=== PATIENT | male | born 1980 | race Caucasian/White ===

== ENCOUNTER 2021-05-03 18:37 | Emergency (ER) | payer OTHER, SELFPAY ==
--- NOTE | ~2021-05-03 | CT_ITS ---
EXAMINATION: CT cervical spine wo con DATE: 05/03/2021 19:33 INDICATION: Fall from skateboard. Struck posterior head, with loss of consciousness. Left-sided neck pain. TECHNIQUE: Computed tomography (CT) of the cervical spine was performed without intravenous contrast. Automated exposure control and iterative reconstruction technique were employed. Exam dose: 384.38 mGy-cm total exam DLP. COMPARISON: None FINDINGS: There is straightening of the thoracic spine which may be due to positioning or muscle spas m. C1 and C2 are normally aligned and the odontoid process is intact. No fracture or dislocation or lock ed facet or prevertebral soft tissue swelling. Cervical interspaces are preserved.. IMPRESSION: Straightening of cervical spine; no fracture or dislocation or locked facet Reviewed, dictated and finalized at [facility]. Reviewed, dictated and finalized at [facility]. IMPRESSION: Straightening of cervical spine; no fracture or dislocation or loc ked facet
--- NOTE | ~2021-05-03 | CT_ITS ---
EXAMINATION: CT brain wo con DATE: 05/03/2021 19:33 INDICATION: Head injury, loss of consciousness. TECHNIQUE: Computed tomography (CT) of the head was performed without intravenous contrast. The mA wa s adjusted according to patient size. Iterative reconstruction technique was employed. Exam dose: 68 1.00 mGy-cm total exam DLP. COMPARISON: None FINDINGS: No intracranial mass lesion or hemorrhage or cerebrovascular accident. No midline shift or mass effect. Normal ventricular size. No subdural or epidural hematoma. No orbital mass lesion. The mastoid air cells are normally developed and aerated. Included paranasal sinuses are normally dev eloped and aerated. No fracture or bone destruction of the cranial vault. Probable sebaceous cyst in the scalp in the high left frontal and high posterior left parietal areas, the latter with some calcifications. IMPRESSION: No significant intracranial abnormality Reviewed, dictated and finalized at [facility]. Reviewed, dictated and finalized at [facility].
--- NOTE | ~2021-05-03 | XR_ITS ---
XR lumbar spine 2-3V DATE: 05/03/2021 19:24 INDICATION: Fall one skateboard today. Low back pain. TECHNIQUE: AP, lateral, coned lateral lumbosacral views COMPARISON: None FINDINGS: Normal alignment of the lumbar spine. No fracture or bone destruction or spondylolisthesis. The included lower thoracic and lumbar pedicles are intact. Lumbar and lumbosacral interspaces are w ell preserved. The sacroiliac joints are intact. IMPRESSION: Negative Reviewed, dictated and finalized at [facility]. IMPRESSION: Negative
[2021-05-03 18:40] VITALS: BP 130/100; PULSE 86; RESP 20; O2SAT 97
[2021-05-03 19:06] VITALS: BP 128/78; PULSE 76; RESP 16; TEMP 37.1; O2SAT 97
--- NOTE | 2021-05-03 19:16 | ED.GENADULT ---
HPI - General Adult General Chief complaint: Head Injury Stated complaint: Head Injury Time Seen by Provider: 05/03/21 18:57 Source: patient, family and RN notes reviewed Mode of arrival: ambulatory Limitations: no limitations History of Present Illness HPI narrative: 40-year-old male presented to the emergency department after having a head injury while skateboarding. Patient states he lost balance fell backwards and striking his head. Patient suspects he did have loss of consciousness. Patient is also having neck and lower back pain. Related Data Home Medications Medication Instructions Recorded Confirmed No Home Medications 01/20/19 01/20/19 Allergies Allergy/AdvReac Type Severity Reaction Status Date / Time No Known Allergies Allergy Verified 01/20/19 10:24 Review of Systems Review of Systems: CONSTITUTIONAL: Denies fever, chills, or sweats. EYES: Denies visual changes, redness, or discharge. ENT: Denies rhinorrhea, congestion, sore throat, or otalgia. CARDIOVASCULAR: Denies chest pain, palpitations, or edema. RESPIRATORY: Denies cough or dyspnea. GASTROINTESTINAL: Denies abdominal pain, nausea, vomiting, or diarrhea. GENITOURINARY: Denies dysuria or hematuria. SKIN: Denies rash or itching. MUSCULOSKELETAL: head, neck and lumbar back pain NEUROLOGIC: headache PMFSH Past Medical History Medical History (Updated 05/06/21 @ 22:25 by Tucker Carrington MD) Klinefelters syndrome Social History Social History (Updated 01/20/19 @ 11:31 by Abigail Ramos, [facility]) Smoking status: Never smoker Alcohol intake: current Alcohol use details: social Substance use: never Gender identity (if verbalized by the patient): Male Exam Narrative: APPEARANCE: Well appearing, no pain, no distress, well-nourished. HEAD: normocephalic, mild contusion on posterior scalp, no laceration. EYES: PERRLA/EOMI, conjunctivae clear. NOSE: Normal no drainage EARS:TMS clear with good light reflex. THROAT: Pharynx clear, no exudate. NECK: Supple. No adenopathy, no masses. RESPIRATORY: Airway patent, respirations nonlabored. Clear to auscultation bilaterally, no rales, rhonchi, wheezing. CARDIOVASCULAR: Regular rate and rhythm without murmurs rubs or gallops. ABDOMINAL: Soft, nontender, nondistended, normal bowel sounds MUSCULOSKELETAL: Moves all extremities. Strength/ROM intact, No edema, No calf tenderness. NEURO: Alert. Cranial nerves II through XII intact. Good gait. Good coordination SKIN: Warm, dry. Normal Color Course Course Emergency Course: CT head neck and lumbar spine showed no acute fractures dislocations. Patient and family were updated on the results of the imaging. Patient was able to ambulate emergency department without issue. Patient was educated on concussion precautions and educated on the importance of close follow-up with his primary care physician. All questions concerns were addressed. Patient was well-appearing at time of discharge from the emerge department. Vital Signs Vital signs: Vital Signs Pulse Rate 86 05/03/21 18:40 Respiratory Rate 20 05/03/21 18:40 Blood Pressure 130/100 H 05/03/21 18:40 Pulse Oximetry 97 05/03/21 18:40 Temperature 97.8 F 05/03/21 20:04 Pulse Rate 68 05/03/21 21:08 Respiratory Rate 16 05/03/21 21:08 Blood Pressure 127/75 05/03/21 21:08 Pulse Oximetry 99 05/03/21 21:08 Medical Decision Making Vital Signs Vital Signs: Vital Signs Pulse Rate 86 05/03/21 18:40 Respiratory Rate 20 05/03/21 18:40 Blood Pressure 130/100 H 05/03/21 18:40 Pulse Oximetry 97 05/03/21 18:40 Temperature 97.8 F 05/03/21 20:04 Pulse Rate 68 05/03/21 21:08 Respiratory Rate 16 05/03/21 21:08 Blood Pressure 127/75 05/03/21 21:08 Pulse Oximetry 99 05/03/21 21:08 Discharge Plan Discharge Clinical Impression: Closed head injury, Low back pain Patient Disposition: Home, Self-Care Condition: Stable Instruction
[2021-05-03] MEDS: HYDROcodone/acetaminophen (*CRX) 5-325 MG TABLET 1 TAB PO (19:53)
[2021-05-03 20:04] VITALS: BP 129/91; PULSE 86; RESP 16; TEMP 36.6; O2SAT 98
[2021-05-03 21:08] VITALS: BP 127/75; PULSE 68; RESP 16; O2SAT 99
== END 2021-05-03 21:11 | disposition home or self-care (01) ==
PROVIDERS: Emergency Provider Emergency Medicine
DX: S09.90XA Unspecified injury of head, initial encounter (principal); S39.92XA Unspecified injury of lower back, initial encounter; V00.131A Fall from skateboard, initial encounter; Y93.51 Activity, roller skating (inline) and skateboarding; Q98.4 Klinefelter syndrome, unspecified
CPT/HCPCS: 70450; 72100; 72125; 99284; A9270